=== PATIENT | female | born 1935 | race Caucasian/White ===

== ENCOUNTER → 2017-10-06 | Emergency (ER) | payer MEDICARE, OTHER ==
[~2017-10-06] VITALS: Ht 158.8 cm; Wt 56.7 kg
[~2017-10-06] MED LIST: AMIODARONE HCL200 MG; ASPIR 8181 MG PO; ASPIRIN 81 MG CHEW TAB PO STA; ASPIRIN81 M1 PO; ATENOLOL25 MG PO; ATENOLOL50 MG PO; AUGMENTIN 500-1 EACH PO; AZITHROMYCIN 500MG/NS 250 ML 250 ML IV ONE; Augmentin PO; CEFTRIAXONE SOD 1 GM VIAL IV ONE; CELEBREX100 MG PO; CRESTOR10 MG PO; FLEXERIL5 MG PO; JANUVIA100 MG PO; MELOXICAM15 MG PO; METFORMIN HCL500 M2 PO; NEXIUM40 MG PO; ONDANSETRON HCL INJ 2 MG/ML VIAL ONE; TYLENOL WITH C1 EACH PO; [UNRECOGNIZED DRUG - OTHER]; penicillin
--- OUTSIDE RECORDS SUMMARY | 2017-10-06 02:10 | XMS REPORT ---
Author Author [facility] Address Unknown Phone Unavailable Care Team Providers Care Porcelain Slusher Name Role Phone DAMARIS RODAS Unavailable Unavailable Problems This patient has no known problems. Allergies, Adverse Reactions, Alerts This patient has no known allergies or adverse reactions. Medications This patient has no known medications. Results Test Description Test Time Test Comments Text Results Atomic Results Result Comments OCCULT BLOOD, STOOL 2017-04-21 15:11:00 FECAL OCCULT BLOOD (BEAKER) (test iaec=050) Negative Negative TROPONIN [id number] 13:46:00* Test Item Value Reference Range Comments TROPONIN I (BEAKER) (test hcgp=353) < ng/mL 0.00-0.15 Troponin I (TnI) levels must be interpreted in the context of the presenting symptoms and the clinical findings. Elevated TnI levels indicate myocardial damage, but are not specific for ischemic heart disease. Elevated TnI levels are seen in patients with other cardiac conditions (including myocarditis and congestive heart failure), and slight TnI elevations occur in patients with other conditions, including sepsis, renal failure, acidosis, acute neurological disease, and persistent tachyarrhythmia.COMPREHENSIVE METABOLIC [id number] 13:40:00* Test Item Value Reference Range Comments TOTAL PROTEIN (BEAKER) (test tmqe=038) 6.9 gm/dL 6.0-8.5 ALBUMIN (BEAKER) (test ynro=4614) 4.0 g/dL 3.5-5.0 ALKALINE PHOSPHATASE (BEAKER) (test qrlr=978) 130 U/L 30-115 BILIRUBIN TOTAL (BEAKER) (test sevg=300) 0.3 mg/dL 0.1-1.3 SODIUM (BEAKER) (test hsda=429) 137 meq/L 135-148 POTASSIUM (BEAKER) (test ckqy=440) 4.6 meq/L 3.5-5.5 CHLORIDE (BEAKER) (test zuzg=626) 107 meq/L 98-106 CO2 (BEAKER) (test hryl=121) 22 meq/L 20-31 BLOOD UREA NITROGEN (BEAKER) (test nkar=059) 27 mg/dL 10-26 CREATININE (BEAKER) (test tdzr=815) 1.24 mg/dL 0.50-1.20 GLUCOSE RANDOM (BEAKER) (test nlxu=823) 92 mg/dL 70-110 CALCIUM (BEAKER) (test zukp=343) 10.5 mg/dL 8.5-10.5 AST (SGOT) (BEAKER) (test xlmr=756) 11 U/L 5-40 ALT (SGPT) (BEAKER) (test mbwr=180) 9 U/L 6-50 EGFR (BEAKER) (test qmfc=8127) 41 mL/min/1.73 sq m ESTIMATED GFR IS NOT ACCURATE CREATININE CLEARANCE IN PREDICTING GLOMERULAR FILTRATION RATE. ESTIMATED GFR IS NOT APPLICABLE FOR DIALYSIS PATIENTS. CBC W/PLT COUNT & AUTO [id number] 13:32:00* Test Item Value Reference Range Comments WHITE BLOOD CELL COUNT (BEAKER) (test xjiw=133) 13.5 K/ L 4.0-10.0 RED BLOOD CELL COUNT (BEAKER) (test nmlz=148) 3.75 M/ L 4.00-5.00 HEMOGLOBIN (BEAKER) (test ctqs=871) 7.1 GM/DL 12.0-15.0 HEMATOCRIT (BEAKER) (test tvcp=780) 24.3 % 36.0-45.0 MEAN CORPUSCULAR VOLUME (BEAKER) (test azez=123) 64.8 fL 82.0-99.0 MEAN CORPUSCULAR HEMOGLOBIN (BEAKER) (test kfca=960) 19.0 pg 27.0-33.0 MEAN CORPUSCULAR HEMOGLOBIN CONC (BEAKER) (test pxtf=943) 29.3 GM/DL 32.0- 36.0 RED CELL DISTRIBUTION WIDTH (BEAKER) (test ciqy=015) 18.2 % 12.0-15.0 PLATELET COUNT (BEAKER) (test altp=105) 274 K/CU MM 150-430 MEAN PLATELET VOLUME (BEAKER) (test iaku=713) 7.8 fL 6.5-10.5 NUCLEATED RED BLOOD CELLS (BEAKER) (test wcud=957) 0 /100 WBC 0-0 NEUTROPHILS RELATIVE PERCENT (BEAKER) (test ywcg=010) 76 % LYMPHOCYTES RELATIVE PERCENT (BEAKER) (test wlic=014) 15 % MONOCYTES RELATIVE PERCENT (BEAKER) (test godu=518) 8 % EOSINOPHILS RELATIVE PERCENT (BEAKER) (test ahac=270) 2 % BASOPHILS RELATIVE PERCENT (BEAKER) (test thfp=377) 0 % NEUTROPHILS ABSOLUTE COUNT (BEAKER) (test pqvq=113) 10.20 K/ L 1.80-8.00 LYMPHOCYTES ABSOLUTE COUNT (BEAKER) (test akop=068) 2.00 K/ L 1.48-4.50 MONOCYTES ABSOLUTE COUNT (BEAKER) (test yopz=832) 1.00 K/ L 0.00-1.30 EOSINOPHILS ABSOLUTE COUNT (BEAKER) (test hkpa=813) 0.20 K/ L 0.00-0.50 BASOPHILS ABSOLUTE COUNT (BEAKER) (test ibjj=782) 0.00 K/ L 0.00-0.20
[2017-10-06 02:38] LABS: BASOPHILS # (AUTO) 0.1 (0.0-0.1); BASOPHILS % 0.4 % (0.0-1.0); EOSINOPHILS # (AUTO) 0.2 (0.0-0.4); EOSINOPHILS % 1.4 % (0.0-6.0); HEMATOCRIT 42.9 % (34.2-44.1); HEMOGLOBIN 13.5 g/dL (12.0-16.0); LYMPHOCYTES # (AUTO) 2.4 (1.0-3.2); LYMPHOCYTES % 21.8 % (18.0-39.1); MEAN CORPUSCULAR HGB CONC 31.5 g/dL (31-35); MEAN CORPUSCULAR VOLUME 92.1 fL (81-99); MONOCYTES % 8.6 % (4.4-11.3); NEUTROPHILS # (AUTO) 7.5 (2.1-6.9); NEUTROPHILS % 66.8 % (38.7-80.0); PLATELET COUNT 238 x10e3/uL (140-360); RED BLOOD COUNT 4.66 x10e6/uL (3.6-5.1); RED CELL DISTRIBUTION WIDTH 14.6 % (11.7-14.4)
[2017-10-06 02:59] LABS: ALANINE AMINOTRANSFERASE 12 IU/L (0-55); ALBUMIN 3.5 g/dL (3.5-5.0); ALBUMIN/GLOBULIN RATIO 1.1 (0.8-2.0); ALKALINE PHOSPHATASE 123 IU/L (40-150); ANION GAP 13.4 mmol/L (8-16); BLOOD UREA NITROGEN 27 mg/dL (7-26); BUN/CREATININE RATIO 26 (6-25); CALCIUM 10.1 mg/dL (8.4-10.2); CARBON DIOXIDE 23 mmol/L (22-29); CHLORIDE 107 mmol/L (98-107); CREATINE KINASE 24 IU/L (29-168); CREATININE, SERUM 1.03 mg/dL (0.57-1.11); EST GLOMERULAR FILTRATION RATE 51 ML/MIN (60-); GLUCOSE 138 mg/dL (74-118); POTASSIUM 4.4 mmol/L (3.5-5.1); SODIUM 139 mmol/L (136-145)
--- NOTE | 2017-10-06 03:00 | Diagnostic Imaging Report ---
EXAMINATION: CHEST SINGLE (PORTABLE) INDICATION: Confusion COMPARISON: 11/01/2012 FINDINGS: TUBES and LINES: None. LUNGS: Lungs are well inflated. Right lung base airspace opacity may represent atelectasis, aspiration or developing infection. PLEURA: No pleural effusion or pneumothorax. HEART AND MEDIASTINUM: The cardiomediastinal silhouette is unremarkable. BONES AND SOFT TISSUES: No acute osseous lesion. Soft tissues are unremarkable. UPPER ABDOMEN: No free air under the diaphragm. IMPRESSION: Right lower lobe air space opacity suspicious for developing pneumonia or aspiration Signed by: Dr. Tad Wilson M.D. on 10/06/2017 2:57 AM
--- NOTE | 2017-10-06 03:15 | Diagnostic Imaging Report ---
EXAMINATION: Head CT without contrast. HISTORY:Altered mental status. COMPARISON:CT brain from 07/03/2009. TECHNIQUE: Multidetector axial images were obtained from the foramen magnum to the vertex without contrast. The images were reconstructed using brain and bone algorithms. Thin section brain images were reformatted into coronal and sagittal planes. Intravenous contrast: None IMAGE QUALITY: Acceptable. FINDINGS: Skull/scalp: No abnormality. Parenchyma: Nonspecific supratentorial white matter patchy and confluent hypodensity are likely related to small vessel ischemic changes. No acute hemorrhage, mass or acute major vascular territorial infarct. Arteries: No density suggestive of thrombosis. Dural sinuses: No abnormal density suggestive of thrombosis. Ventricles: Moderate ventriculomegaly slightly disproportionate to the amount of cerebral volume loss. Extra-axial spaces: No abnormal density. Brain volume: Generalized age-related cerebral volume loss. Craniocervical junction: No mass, Chiari malformation, or basilar invagination. Sella: No mass. Paranasal/mastoid sinuses: Mild mucosal thickening in bilateral ethmoid sinuses. IMPRESSION: 1. No acute intracranial abnormality, particularly no acute hemorrhage, mass or acute major vascular territorial infarct. 2. Mild supratentorial white matter microvascular ischemic changes and generalized age-related cerebral volume loss. 3. Moderate ventriculomegaly disproportionate to the amount of cerebral volume loss, may represent normal pressure hydrocephalus in appropriate clinical setting. Signed by: Dr. Lroi Frazier M.D. on 10/06/2017 3:12 AM
[2017-10-06 03:39] LABS: INR 0.82; PARTIAL THROMBOPLASTIN TIME 33.1 seconds (23.8-35.5); PROTHROMBIN TIME 11.7 seconds (11.9-14.5)
[2017-10-06 03:42] LABS: BILIRUBIN,URINE NEGATIVE (NEGATIVE); KETONES,URINE NEGATIVE (NEGATIVE); LEUKOCYTE ESTERASE ,URINE NEGATIVE (NEGATIVE); NITRITE,URINE NEGATIVE (NEGATIVE); PROTEIN,URINE DIPSTICK NEGATIVE (NEGATIVE); URINE UROBILINOGEN 0.2 mg/dL (0.2 - 1)
[2017-10-06 03:43] LABS: CLARITY,URINE CLEAR (CLEAR); COLOR,URINE YELLOW (YELLOW)
[2017-10-06 03:49] LABS: BACTERIA,URINE RARE /HPF; EPITHELIAL CELLS,URINE FEW /LPF; RBC,URINE 0-5 /HPF (0-5)
== END | disposition short-term general hospital (02) ==
LOC: ER 02:07
DX: R53.1 Weakness (principal); I63.511 Cerebral infarction due to unspecified occlusion or stenosis of right middle cerebral artery; J15.9 Unspecified bacterial pneumonia; I10 Essential (primary) hypertension; E11.9 Type 2 diabetes mellitus without complications; Z86.73 Personal history of transient ischemic attack (TIA), and cerebral infarction without residual deficits
CPT/HCPCS: 36415; 70450; 71010; 80053; 81001; 82550; 82553; 84484; 85025; 85610; 85730; 87040; 87086; 93005; 99284; J0456; J0696; J2405; 71045

== ENCOUNTER → 2017-10-11 | Outpatient (CLI) | payer OTHER ==
[~2017-10-11] MED LIST changes: -ASPIRIN 81 MG CHEW TAB PO STA; -AZITHROMYCIN 500MG/NS 250 ML 250 ML IV ONE; -CEFTRIAXONE SOD 1 GM VIAL IV ONE; -ONDANSETRON HCL INJ 2 MG/ML VIAL ONE
[2017-10-11 14:18] LABS: CALCIUM 8.8 mg/dL (8.4-10.2); CREATININE, SERUM 0.92 mg/dL (0.57-1.11)
[2017-10-11 14:23] LABS: BASOPHILS % 0.3 % (0.0-1.0); EOSINOPHILS # (AUTO) 0.4 (0.0-0.4); EOSINOPHILS % 5.3 % (0.0-6.0); HEMATOCRIT 28.7 % (34.2-44.1); HEMOGLOBIN 8.9 g/dL (12.0-16.0); LYMPHOCYTES # (AUTO) 1.5 (1.0-3.2); LYMPHOCYTES % 22.7 % (18.0-39.1); MEAN CORPUSCULAR HEMOGLOBIN 31.1 pg (28-32); MEAN CORPUSCULAR VOLUME 100.3 fL (81-99); MONOCYTES # (AUTO) 0.4 (0.2-0.8); MONOCYTES % 5.9 % (4.4-11.3); NEUTROPHILS # (AUTO) 4.3 (2.1-6.9); NEUTROPHILS % 64.9 % (38.7-80.0); PLATELET COUNT 276 x10e3/uL (140-360); RED BLOOD COUNT 2.86 x10e6/uL (3.6-5.1); RED CELL DISTRIBUTION WIDTH 19.3 % (11.7-14.4)
[2017-10-13 05:58] LABS: ANION GAP 13.1 mmol/L (8-16); CALCIUM 10.2 mg/dL (8.4-10.2); CREATININE, SERUM 0.91 mg/dL (0.57-1.11); POTASSIUM 4.1 mmol/L (3.5-5.1)
[2017-10-13 05:59] LABS: HEMATOCRIT 41.4 % (34.2-44.1); HEMOGLOBIN 13.1 g/dL (12.0-16.0); RED BLOOD COUNT 4.48 x10e6/uL (3.6-5.1)
[2017-10-13 06:00] LABS: BASOPHILS % 0.5 % (0.0-1.0); EOSINOPHILS # (AUTO) 0.3 (0.0-0.4); EOSINOPHILS % 3.9 % (0.0-6.0); LYMPHOCYTES % 23.3 % (18.0-39.1); MEAN CORPUSCULAR HEMOGLOBIN 29.2 pg (28-32); MEAN CORPUSCULAR HGB CONC 31.9 g/dL (31-35); MEAN CORPUSCULAR VOLUME 91.7 fL (81-99); MONOCYTES # (AUTO) 0.8 (0.2-0.8); MONOCYTES % 8.8 % (4.4-11.3); NEUTROPHILS # (AUTO) 5.5 (2.1-6.9); NEUTROPHILS % 62.8 % (38.7-80.0); PLATELET COUNT 180 x10e3/uL (140-360); RED CELL DISTRIBUTION WIDTH 14.6 % (11.7-14.4)
== END ==
LOC: NPA 11:30
PROVIDERS: ATTEND Internal Medicine Pulmonary Disease
DX: Z02.89 Encounter for other administrative examinations (principal)
CPT/HCPCS: 36415; 80048; 85025

== ENCOUNTER 2017-12-28 17:45 | Emergency (ER) | payer MEDICARE, OTHER ==
[~2017-12-28] VITALS: Ht 158.8 cm; Wt 51.7 kg
--- OUTSIDE RECORDS SUMMARY | 2017-12-28 17:48 | XMS REPORT | Clinical Summary ---
Author Author [facility] Address Unknown Phone Unavailable Care Team Providers Care Passenger Service Manager Name Role Phone PCP Unavailable Allergies No Known Allergies Current Medications Prescription Sig. Disp. Refills Start End Date Status Date clopidogrel (PLAVIX) 75 Take 75 mg by mouth Active mg tablet daily. atorvastatin (LIPITOR) 20 Take 20 mg by mouth Active MG tablet nightly . pantoprazole (PROTONIX) Take 20 mg by mouth Active 20 MG tablet daily. atenolol (TENORMIN) 50 MG Take 50 mg by mouth 2 Active tablet (two) times daily . meclizine (ANTIVERT) 25 Take 25 mg by mouth daily Active MG tablet . linagliptin 5 mg Tab Take 1 tablet by mouth Active daily . metFORMIN (GLUCOPHAGE) Take 1,000 mg by mouth Active 500 MG tablet daily with breakfast . aspirin 81 MG chewable Take 81 mg by mouth Active tablet daily. gabapentin (NEURONTIN) Take 100 mg by mouth Active 100 MG capsule daily as needed . fluticasone-salmeterol Inhale 1 puff by mouth Active (ADVAIR) 500-50 mcg/dose via inhaler 2 (two) times diskus inhaler daily. cyanocobalamin, vitamin Take 1 tablet by mouth Active B-12, 2,500 mcg Chew daily. cyanocobalamin 2000 MCG Take 2,000 mcg by mouth 04/21/20 Discontin tablet daily. 17 ued Active Problems Not on file Encounters Date Type Specialty Care Team Description 04/21/2017 Emergency Emergency Medicine [place], Damaris Valerio MD Anemia , unspecified type (Primary Dx);Fatigue, unspecified type 04/21/2017 Orders Only General Internal Medicine after 12/27/2016 Social History Tobacco Use Types Packs/Day Years Used Date Former Smoker Smokeless Tobacco: Never Used Alcohol Use Drinks/Week oz/Week Comments No Sex Assigned at Date Recorded Not on file Last Filed Vital Signs Vital Sign Reading Time Taken Blood Pressure 142/55 04/21/2017 7:16 PM CDT Pulse 90 04/21/2017 7:16 PM CDT Temperature 36.8 C (98.3 F) 04/21/2017 6:05 PM CDT Respiratory Rate 26 04/21/2017 7:16 PM CDT Oxygen Saturation 99% 04/21/2017 7:16 PM CDT Inhaled Oxygen - - Concentration Weight 56.2 kg (124 lb) 04/21/2017 12:49 PM CDT Height 160 cm (5' 3") 04/21/2017 12:49 PM CDT Body Mass Index 21.97 04/21/2017 12:49 PM CDT Plan of Treatment Not on file Results * TRANSFUSION SERVICE REPORT - SCAN (04/23/2017 5:40 PM) Only the most recent of 2 results within the time period is included. * Prepare Leuko-Red RBC (04/22/2017 11:55 PM) Component Value Ref Range CROSSMATCH COMPATIBLE Unit ABO O Pos UNIT NUMBER [id number] Status TRANSFUSED Blood Bank Product RED BLOOD CELLS PRODUCT CODE C2849S20 Specimen Performing Laboratory Other [facility] [place] * ED ECG Interpretation (04/21/2017 3:39 PM) Narrative Damaris Rodas MD 04/21/20173:39 PM ECG/EKG Interpretation Date/Time: 04/21/2017 1:26 PM Performed by: DAMARIS RODAS Authorized by: DAMARIS RODAS The ECG was interpreted by ED physician. This ECG was not compared with previous ECG(s).The ECG is interpreted as sinus rhythm. Ectopy noted: PVCs. Rate is normal rate. Heart rate is 79 BPM. Conduction: conduction normal. ST segments normal. T waves normal. [place] is normal. Other findings: no other findings. Clinical Impression: normal ECGECG reviewed and does not meet STEMI criteria. Patient tolerance: Patient tolerated the procedure well with no immediate complications * XR chest 1 view portable / bedside (04/21/2017 2:24 PM) Specimen Performing Laboratory GE RIS Narrative FINAL REPORT Chest one view INDICATION: Anemia COMPARISON: None available IMPRESSION: There are nonspecific coarsened interstitial markings. Left mid lung and lower right lung opacities nonspecific and could reflect scarring or atelectasis. Pneumonitis cannot be excluded, however. Advise short term radiographic follow up or CT. There is no pneumothorax or pleural effusion. A right lung base granuloma is suspected. The cardiac silhouette is enlarged. Aortic calcifications are present. The bones appear demineralized. Paratracheal stripe enlargement and tracheal contouring could reflect thyromegaly or vascular ectasia. An underlying mediastinal lesion can also be excluded with chest CT. Signed: Prema Ceballos MD Report Verified Date/Time:04/21/2017 14:45:13 Reading Location: [facility] C013 Consult Reading Room Procedure Note Interface, External Ris In - 04/21/2017 2:47 PM CDT FINAL REPORT Chest one view INDICATION: Anemia COMPARISON: None available IMPRESSION: There are nonspecific coarsened interstitial markings. Left mid lung and lower right lung opacities nonspecific and could reflect scarring or atelectasis. Pneumonitis cannot be excluded, however. Advise short term radiographic follow up or CT. There is no pneumothorax or pleural effusion. A right lung base granuloma is suspected. The cardiac silhouette is enlarged. Aortic calcifications are present. The bones appear demineralized. Paratracheal stripe enlargement and tracheal contouring could reflect thyromegaly or vascular ectasia. An underlying mediastinal lesion can also be excluded with chest CT. Signed: Prema Ceballos MD Report Verified Date/Time: 04/21/2017 14:45:13 Reading Location: [facility] C013 Consult Reading Room * Occult blood x 1, stool (04/21/2017 2:10 PM) Component Value Ref Range Occult blood Negative Negative Specimen Performing Laboratory Stool - Per Rectum [facility] [address] [place] [address] * ECG 12 lead (04/21/2017 1:26 PM) Specimen Performing Laboratory GE MUSE Narrative Ventricular Rate 79 BPM Atrial Rate 79 BPM P-R Interval 192 ms QRS Duration 74 ms Q-T Interval 340 ms QTC Calculation(Bazett) 389 ms P Berkshire 79 degrees R Berkshire 16 degrees T [place] 19 degrees Sinus rhythm with occasional Premature ventricular complexes Otherwise normal ECG No previous ECGs available Procedure Note Interface, External Ris In - 04/27/2017 3:58 PM CDT Ventricular Rate 79 BPM Atrial Rate 79 BPM P-R Interval 192 ms QRS Duration 74 ms Q-T Interval 340 ms QTC Calculation(Bazett) 389 ms P [place] 79 degrees R [place] 16 degrees T [place] 19 degrees Sinus rhythm with occasional Premature ventricular complexes Otherwise normal ECG No previous ECGs available * CBC with platelet count + automated diff (04/21/2017 1:12 PM) Component Value Ref Range WBC 13.5 (H) 4.0 - 10.0 K/ L RBC 3.75 (L) 4.00 - 5.00 M/ L Hemoglobin 7.1 (L) 12.0 - 15.0 GM/DL Hematocrit 24.3 (L) 36.0 - 45.0 % MCV 64.8 (L) 82.0 - 99.0 fL MCH 19.0 (L) 27.0 - 33.0 pg MCHC 29.3 (L) 32.0 - 36.0 GM/DL RDW 18.2 (H) 12.0 - 15.0 % Platelets 274 150 - 430 K/CU MM MPV 7.8 6.5 - 10.5 fL nRBC 0 0 - 0 /100 WBC % Neutros 76 % % Lymphs 15 % % Monos 8 % % Eos 2 % % Baso 0 % # Neutros 10.20 (H) 1.80 - 8.00 K/ L # Lymphs 2.00 1.48 - 4.50 K/ L # Monos 1.00 0.00 - 1.30 K/ L # Eos 0.20 0.00 - 0.50 K/ L # Baso 0.00 0.00 - 0.20 K/ L Specimen Performing Laboratory Blood [facility] [address] [place] [address] * Troponin I (not available at [facility]) (04/21/2017 1:12 PM) Component Value Ref Range Troponin I <0.01 0.00 - 0.15 ng/mL Specimen Performing Laboratory Blood [facility] [address] [place] [address] Narrative Troponin I (TnI) levels must be interpreted [...] failure, acidosis, acute neurological disease, and persistent tachyarrhythmia. * CBC with platelet count + automated diff (04/21/2017 1:12 PM) Specimen Performing Laboratory Blood Narrative The following orders were created for panel order CBC with platelet count + automated diff. Procedure Abnormality Status --------- - ------ CBC with platelet count ...[[id number]]AbnormalFinal result Please view results for these tests on the individual orders. * Type and screen (04/21/2017 1:12 PM) Component Value Ref Range Ab Scrn NEGATIVE ABO Grouping O Rh Factor POS Specimen Performing Laboratory Blood [facility] [address] [place] [address] * Comprehensive metabolic panel (04/21/2017 1:12 PM) Component Value Ref Range Protein, Total 6.9 6.0 - 8.5 gm/dL Albumin 4.0 3.5 - 5.0 g/dL Alkaline Phosphatase 130 (H) 30 - 115 U/L Total Bilirubin 0.3 0.1 - 1.3 mg/dL Sodium 137 135 - 148 meq/L Potassium 4.6 3.5 - 5.5 meq/L Chloride 107 (H) 98 - 106 meq/L CO2 22 20 - 31 meq/L BUN 27 (H) 10 - 26 mg/dL Creatinine 1.24 (H) 0.50 - 1.20 mg/dL Glucose 92 70 - 110 mg/dL Calcium 10.5 8.5 - 10.5 mg/dL AST 11 5 - 40 U/L ALT 9 6 - 50 U/L EGFR 41Comment: ESTIMATED GFR IS NOT ACCURATE mL/min/1.73 sq m CREATININE CLEARANCE IN PREDICTING GLOMERULAR FILTRATION RATE. ESTIMATED GFR IS NOT APPLICABLE FOR DIALYSIS PATIENTS. Specimen Performing Laboratory Blood [facility] [address] [place] [address] after 12/27/2016
--- NOTE | 2017-12-28 20:37 | Diagnostic Imaging Report ---
Pelvis CPT code: Fall Indication: Hip x-rays with pelvis 02/17/2016; right hip x-rays 03/21/2014 Technique: Single AP image obtained Findings: 3 dynamic compression screws in the proximal right femur are redemonstrated. Visualized portions of the hardware are intact without surrounding lucency to suggest loosening. Mild degenerative changes of the left hip are present and stable. No diastases of the pubic symphysis or sacroiliac joints. Degenerative changes of the lower lumbar spine are stable. Soft tissue calcifications in the left pelvis are stable. Abdomen x-ray 12/25/2014 IMPRESSION: 1. No acute traumatic pathology by x-ray. 2. Stable hardware in the right hip. Signed by: Dr. Al Mosqueda MD on 12/28/2017 8:34 PM
--- NOTE | 2017-12-28 20:51 | Diagnostic Imaging Report ---
Exams: Head, cervical spine and thoracic spine CTs without IV contrast History: Fall, pain trauma, fall Comparison studies: Head CT 10/06/2017. Included thoracic spine from CT chest and U of 07/05/2010. Technique: Axial images were obtained from the brain, cervical spine and thoracic spine. Coronal and sagittal images reconstructed from the axial data. Intravenous contrast: None Findings: Head CT: Scalp: No abnormalities. Bones: No fractures, blastic or lytic lesions. Extra-axial spaces: No masses. No fluid collections. Brain sulci: Mildly prominent. Ventricles: Moderately dilated, disproportionate to sulcal prominence which may be related to degree of central greater peripheral cortical volume loss. Normal pressure hydrocephalus (NPH) could be considered in the appropriate clinical setting. Parenchyma: No mass, acute hemorrhage or acute cortical vascular insults. There are small chronic cortical-subcortical insult in the right inferior perirolandic gyri in the right MCA vascular territory. Unchanged chronic insult along the left superolateral cerebellum in the left superior cerebellar artery territory. A few scattered hypodensities in the supratentorial white matter are nonspecific but most compatible with chronic small vessel ischemic changes. Sellar/suprasellar region: No abnormalities. Craniocervical junction: The foramen magnum is patent. No Chiari one malformation. Cervical and thoracic spine CTs: Fractures: None. Soft tissues: No gross acute abnormalities. Atlantoaxial articulation: Intact. Alignment: Cervical kyphosis centered at C4-C5. Normal thoracic kyphosis. Minimal retrolisthesis of C4 on C5 and C5 on C6 and minimal anterolisthesis of C7 on T1 are most likely degenerative in etiology. Cervicomedullary junction: No abnormalities. The foramen magnum is patent. Vertebrae: No infection or neoplasm. Cervical degenerative changes: Moderate to severely degenerated disks from C2 to C7 with loss of disc height and associated degenerative endplate changes, greatest at C4-C5 and at C5-C6. Disc bulge/disc osteophyte complex at C2-C3, disc osteophyte complexes from C3 to C7 and minimal retrolisthesis of C4 on C5 and C5 on C6 result in multilevel canal stenosis (mild at C2-C3 and at C3-C4, mild to moderate at C4-C5 and at C5-C6 and mild at C6-C7). Multilevel uncovertebral and facet arthrosis result in multilevel foraminal stenosis (mild bilaterally at C3-C4 moderate right and mild left at C4-C5 severe right and mild/moderate left at C5-C6 moderate left and mild/moderate right at C6-C7). Thoracic degenerative changes: No significant abnormalities. Patent canal and foramina. Incidental findings: * Moderate scattered calcified atherosclerosis in the thoracic and included abdominal aorta and calcified plaque in the cervical carotid bulbs. * 3.2 cm AP x 2.3 cm TV left paratracheal mass at the thoracic inlet, possibly arising from the left thyroid lobe. Additional consideration would be mass of parathyroid origin or lymph node. * Persistent nonspecific 2.0 cm groundglass density in the superior segment of the right lower lobe. * Scattered calcified liver and splenic granulomas. * Partially imaged, approximately 2.0 cm left renal lesion with average density, greater than that of simple fluid (lesion was with density similar to that of fluid on the previous chest CT of 07/05/2010). Renal ultrasound could further evaluate. IMPRESSION: Head CT: 1. No acute intracranial abnormalities. 2. 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 3. No other changes from the previous head CT of 10/06/2017. 4. Chronic findings include: Generalized volume loss, remote left superior cerebellar insult, mild chronic microvascular ischemic changes and nonspecific ventriculomegaly as described without acute hydrocephalus. Cervical and thoracic spine CTs: 1. No cervical or thoracic spine fracture or acute subluxation. 2. Moderate degenerative changes in the cervical spine. 3. Cannot adequately evaluate ligament, spinal cord and or vascular abnormalities on the basis of this examination. 4. Incidental findings as described. Signed by: Dr. Evaristo Kelley M.D. on 12/28/2017 8:48 PM
[2017-12-28 22:14] VITALS: BP 137/92
== END 2017-12-28 22:20 ==
LOC: ER 17:45
CPT/HCPCS: 70450; 72125; 72128; 72170; 99284